=== PATIENT | female | born 2000 | race Two or more races ===

== ENCOUNTER → 2020-03-15 | Outpatient (CLI) | payer OTHER | END | disposition home or self-care (01) | LOC: OFIC 805 11:30 | PROVIDERS: ATTEND Otolaryngology | DX: J03.81 Acute recurrent tonsillitis due to other specified organisms (principal); J03.80 Acute tonsillitis due to other specified organisms; H90.41 Sensorineural hearing loss, unilateral, right ear, with unrestricted hearing on the contralateral side ==

== ENCOUNTER 2022-04-19 12:04 | Outpatient (CLI) | payer OTHER | END 2022-04-19 12:25 | disposition home or self-care (01) | LOC: SONOGRAMA 12:04 | PROVIDERS: ATTEND Obstetrics & Gynecology | DX: N83.291 Other ovarian cyst, right side (principal); N64.51 Induration of breast ==

== ENCOUNTER 2022-08-14 08:54 | Emergency (ER) | payer OTHER ==
[~2022-08-14] VITALS: Ht 152.4 cm; Wt 57.6 kg
== END 2022-08-14 15:40 | disposition home or self-care (01) ==
LOC: ER 08:54
DX: B34.9 Viral infection, unspecified (principal); Z20.822 Contact with and (suspected) exposure to COVID-19

== ENCOUNTER 2022-08-30 08:09 | Outpatient (CLI) | payer OTHER | END 2022-08-30 09:12 | disposition home or self-care (01) | LOC: SONOGRAMA 08:09 | PROVIDERS: ATTEND Obstetrics & Gynecology | DX: N93.8 Other specified abnormal uterine and vaginal bleeding (principal) ==

== ENCOUNTER 2022-09-12 06:00 | Day surgery (SDC) | payer OTHER ==
[~2022-09-12 06:00] MED LIST: DAILY VALUE1 EACH PO; MELOXICAM7.5 MG PO
== END 2022-09-12 13:45 | disposition home or self-care (01) ==
LOC: CIR.AMB 06:00
PROVIDERS: ATTEND Obstetrics & Gynecology
DX: N93.8 Other specified abnormal uterine and vaginal bleeding (principal); Z20.822 Contact with and (suspected) exposure to COVID-19

== ENCOUNTER 2024-03-12 11:30 | Outpatient (CLI) | payer OTHER | END 2024-03-12 11:40 | disposition home or self-care (01) | LOC: SONOGRAMA 11:30 | PROVIDERS: ATTEND Internal Medicine Rheumatology | DX: M06.09 Rheumatoid arthritis without rheumatoid factor, multiple sites (principal) ==

== ENCOUNTER 2024-05-14 11:09 | Outpatient (CLI) | payer OTHER | END 2024-05-14 11:18 | disposition home or self-care (01) | LOC: SONOGRAMA 11:09 | PROVIDERS: ATTEND Obstetrics & Gynecology | DX: N64.51 Induration of breast (principal) ==

== ENCOUNTER 2024-07-15 05:20 | Day surgery (SDC) | payer OTHER ==
[2024-07-09 08:36] LABS: HEMATOCRIT 39.5 % (36.0-45.00); HEMOGLOBIN 13.2 g/dL (12.0-15.00); MEAN CELL VOLUME 84.7 fL (80.00-100.00); MEAN CORPUSCULAR HEMOGLOBIN 28.3 pg (27.00-32.0); MEAN CORPUSCULAR HGB CONC 33.4 g/dl (32.0-36.0); PLATELET COUNT 197 K/uL (150-450); RED BLOOD COUNT 4.66 M/uL (4.00-6.00); RED CELL DISTRIBUTION WIDTH 14.5 % (11.5-14.5)
[2024-07-09 08:36] LABS: URINE APPEARANCE Clear; URINE BILIRRUBIN Negative (NEGATIVE); URINE BLOOD Negative; URINE COLOR Yellow; URINE GLUCOSE Negative (NEGATIVE); URINE KETONE Negative (NEGATIVE); URINE LEUKOCYTE Negative; URINE NITRATE Negative; URINE PROTEIN Negative (NEGATIVE); URINE UROBILINOGEN 0.2 E.U./dl
[2024-07-09 08:40] LABS: URINE BACTERIA 143.6 uL (0.0-1933); URINE RBC 3.6 uL (0.0-20.8)
[2024-07-09 08:55] LABS: INR 1.02; PARTIAL THROMBOPLASTIN TIME 30.8 SECONDS (22.0-34.0); PROTHROMBIN TIME 11.1 SECONDS (9.0-11.5)
[2024-07-15] MEDS ORDERED: CEFAZOLIN SODIUM 1,000 MG VIAL IV ONE (11:15)
== END 2024-07-15 16:00 | disposition home or self-care (01) ==
LOC: CIR.AMB 05:20
PROVIDERS: ATTEND Obstetrics & Gynecology
DX: N87.0 Mild cervical dysplasia (principal)

== ENCOUNTER 2024-08-20 08:12 | Outpatient (CLI) | payer OTHER | END 2024-08-20 08:17 | disposition home or self-care (01) | LOC: SONOGRAMA 08:12 | PROVIDERS: ATTEND Obstetrics & Gynecology | DX: N93.8 Other specified abnormal uterine and vaginal bleeding (principal) ==